=== PATIENT | female | born 1955 | race Caucasian/White ===

== ENCOUNTER 2016-11-24 12:43 | Emergency (ER) | payer OTHER ==
[~2016-11-24] VITALS: Wt 72.5 kg
[~2016-11-24 12:43] MED LIST: SALS500T11 PO
[2016-11-24] MEDS ORDERED: HYDR-906 PO (13:11)
[2016-11-24] MEDS ORDERED: IBUP-1542 PO (13:11)
[2016-11-24] MEDS ORDERED: ACYC800T57 PO (13:11)
--- NOTE | 2016-11-24 13:13 | ERD ---
ER Documentation Chief Complaint Date/Time DATE: 11/24/16 TIME: 13:12 Chief Complaint rash to lower legs with no signs of sob. unknown cause HPI This 61-year-old female presents with approximately 4-5 day history of a rash on her right lower extremity. It is painful and burning for the small blisters. She denies fevers, vomiting, shortness breath or chest pain per ROS All systems reviewed and are negative except as per history of present illness. Medications Home Meds Active Scripts Ibuprofen* (Ibuprofen*) 600 Mg Tablet, 600 MG PO Q6, #20 TAB Prov:DELVIS LEDEZMA MD 11/24/16 Hydrocodone/Acetaminophen ([place] 5-325 Tablet) 1 Each Tablet, 1 TAB PO Q6H Y for PAIN, #12 TAB Prov:DELVIS LEDEZMA MD 11/24/16 Acyclovir* (Zovirax*) 800 Mg Tablet, 800 MG PO 5 TIMES DAILY for 7 Days, TAB Prov:DELVIS LEDEZMA MD 11/24/16 Reported Medications Salsalate (Disalcid) 500 Mg Tab, 1 TAB PO Q8 11/13/11 Allergies Allergies: Coded Allergies: No Known Allergy (Unverified , 04/16/16) PMhx/Soc Medical and Surgical Hx: pt denies Surgical Hx History of Surgery: No Anesthesia Reaction: No Hx Neurological Disorder: No Hx Respiratory Disorders: No Hx Cardiac Disorders: No Hx Psychiatric Problems: No Hx Miscellaneous Medical Probl: Yes (Osteoporosis) Hx Alcohol Use: No Hx Substance Use: No Hx Tobacco Use: No Smoking Status: Never smoker Physical Exam Vitals Vital Signs Date Time Temp Pulse Resp B/P Pulse Ox O2 Delivery O2 Flow Rate FiO2 11/24/16 12:46 97.8 68 21 140/66 98 Physical Exam Const: [] Alert, not ill-appearing. Head: Atraumatic Eyes: Normal Conjunctiva ENT: Normal External Ears, Nose and Mouth. Neck: Full range of motion..~ No meningismus. Resp: Clear to auscultation bilaterally Cardio: Regular rate and rhythm, no murmurs Abd: Soft, non tender, non distended. Normal bowel sounds Skin: No petechiae or purpura. There is a erythematous patchy rash in a dermatomal distribution with small vesicles on the right lower extremity medially extending from the right thigh to the right medial calf Back: No midline or flank tenderness Ext: No cyanosis, or edema Neur: Awake and alert Psych: Normal Mood and Affect Procedures/MDM Patient presents with signs and symptoms of right lower extremity zoster. There is no signs of sepsis, neurologic deficit, additional emergent causes of presenting complaints. She will discharged home the course of acyclovir, [place] and ibuprofen. The patient was stable with no new complaints during the ER course. Clinically, there is no current evidence to suggest meningitis, sepsis, acute abdomen, pneumonia, acute coronary syndrome, pulmonary embolism, or any other emergent condition appearing to require further evaluation or hospitalization. The patient should certainly return for any new or worsening symptoms per the aftercare instructions. They should otherwise follow-up with her primary care doctor for reevaluation this week. Departure Diagnosis: Primary Impression: Zoster Herpes zoster complications: without complications Qualified Code: B02.9 - Herpes zoster without complication Condition: Stable Patient Instructions: Herpes Zoster Additional Instructions: Cheque otro vez con rousseau doctor primario en el proximo johnson or regresa para mas o nueva simptomas. DELVIS LEDEZMA MD Nov 24, 2016 13:13
== END 2016-11-24 13:27 | disposition home or self-care (01) ==
LOC: FTE 12:43
DX: B02.9 Zoster without complications (principal)
CPT/HCPCS: 99284

== ENCOUNTER 2018-10-30 11:09 | Emergency (ER) | payer OTHER ==
[~2018-10-30] VITALS: Ht 154.9 cm; Wt 80.6 kg
[~2018-10-30 11:09] MED LIST changes: +ACYC800T5 PO; +HYDR-4011 PO; +IBUP-1542 PO
[2018-10-30 11:15] VITALS: BP 146/71; PULSE 74; RESP 16; Ht 154.9 cm; Wt 80.6 kg
--- NOTE | 2018-10-30 12:13 | ERD ---
ER Documentation Chief Complaint Chief Complaint pt is bib self with c/o nose bleed yesterday, no bleeding at triage HPI 63-year-old female with past medical history of osteoarthritis who presents with complaint of nosebleed since yesterday. Has had intermittent nosebleeds since last night with a single episode this morning. She denies any fall or trauma to the area. Not on any blood thinner medications. She otherwise denies chest pain, dizziness, shortness of breath, dyspnea or any other concerning symptoms. ROS All systems reviewed and are negative except as per history of present illness. Medications Home Meds Active Scripts Ibuprofen* (Ibuprofen*) 600 Mg Tablet, 600 MG PO Q6, #20 TAB Prov:DELVIS LEDEZMA MD 11/24/16 Hydrocodone/Acetaminophen ([place] 5-325 Tablet) 1 Each Tablet, 1 TAB PO Q6H PRN for PAIN, #12 TAB Prov:DELVIS LEDEZMA MD 11/24/16 Acyclovir* (Zovirax*) 800 Mg Tablet, 800 MG PO 5 TIMES DAILY for 7 Days, TAB Prov:DELVIS LEDEZMA MD 11/24/16 Reported Medications Salsalate (Disalcid) 500 Mg Tab, 1 TAB PO Q8 11/13/11 Allergies Allergies: Coded Allergies: No Known Allergy (Unverified , 04/16/16) PMhx/Soc Medical and Surgical Hx: pt denies Surgical Hx History of Surgery: No Anesthesia Reaction: No Hx Neurological Disorder: No Hx Respiratory Disorders: No Hx Cardiac Disorders: No Hx Psychiatric Problems: No Hx Miscellaneous Medical Probl: Yes (Osteoporosis, Hyperlipidemia) Hx Alcohol Use: No Hx Substance Use: No Hx Tobacco Use: No Smoking Status: Never smoker FmHx Family History: No diabetes, No coronary disease, No other Physical Exam Vitals Vital Signs Date Temp Pulse Resp B/P (MAP) Pulse Ox O2 O2 Flow FiO2 Time Delivery Rate 10/30/18 98.9 74 16 146/71 98 11:15 (96) Physical Exam I have reviewed the triage vital signs. Const: Well nourished, well developed, appears stated age Eyes: PERRL, no conjunctival injection HENT: NCAT, Neck supple without meningismus, anterior left nostril small tiny laceration septum wall, nonbleeding, no clots seen CV: RRR, Warm, well-perfused extremities RESP: CTAB, Unlabored respiratory effort GI: soft, non-tender, non-distended, no masses MSK: No gross deformities appreciated Skin: Warm, dry. No rashes Neuro: grossly non focal Psych: Appropriate mood and affect. Procedures/MDM This 53-year-old female patient presents with epistaxis, which appears to have minimal bleeding that has resolved. There are no risk factors for bleeding disorders and the patient is hemodynamically stable. No evidence of anemia. Will treat supportively.g stopped DISPOSITION PLAN: We discussed follow up with the patient's primary care doctor within 24 to 48 hours. Patient counseled regarding my diagnostic impression and care plan. Prior to discharge all questions answered. Pt agrees with treatment plan and understands strict return precautions. Precautionary instructions provided including instructions to return to the ER if not improving or for any worsening or changing symptoms or concerns. Disclaimer: Inadvertent spelling and grammatical errors are likely due to EHR/dictation software use and do not reflect on the overall quality of patient care. Also, please note that the electronic time recorded on this note does not necessarily reflect the actual time of the patient encounter. Departure Diagnosis: Primary Impression: Epistaxis Condition: Stable Patient Instructions: Epistaxis (Adult) Referrals: [facility] YOU HAVE RECEIVED A MEDICAL SCREENING EXAM AND THE RESULTS INDICATE THAT YOU DO NOT HAVE A CONDITION THAT REQUIRES URGENT TREATMENT IN THE EMERGENCY DEPARTMENT. FURTHER EVALUATION AND TREATMENT OF YOUR CONDITION CAN WAIT UNTIL YOU ARE SEEN IN YOUR DOCTORS OFFICE WITHIN THE NEXT 1-2 DAYS. IT IS YOUR RESPONSIBILITY TO MAKE AN APPOINTMENT FOR FOLOW-UP CARE. IF YOU HAVE A PRIMARY DOCTOR --you should call your primary doctor and schedule an appointment IF YOU DO NOT HAVE A PRIMARY DOCTOR YOU CAN CALL OUR PHYSICIAN REFERRAL HOTLINE AT IF YOU CAN NOT AFFORD TO SEE A PHYSICIAN YOU CAN CHOSE FROM THE FOLLOWING [facility] [address] [place] [facility] [place] [address] [facility] [address] [facility] [address] [facility] [address] [facility]. [facility] [address] Additional Instructions: Call your primary care doctor TOMORROW for an appointment during the next 2-3 days.See the doctor sooner or return here if your condition worsens before your appointment time. LUIS BURTON PA-C Oct 30, 2018 12:13
== END 2018-10-30 13:15 | disposition home or self-care (01) ==
LOC: FTE 11:09
DX: R04.0 Epistaxis (principal); S01.21XA Laceration without foreign body of nose, initial encounter; X58.XXXA Exposure to other specified factors, initial encounter; Y92.9 Unspecified place or not applicable
CPT/HCPCS: 99282